=== PATIENT | male | born 1970 | race Caucasian/White ===

== ENCOUNTER → 2018-01-26 15:48 | Outpatient (CLI) | payer OTHER, SELFPAY ==
--- NOTE | 2018-01-26 15:50 | RAD_ITS ---
STUDY: X-RAY - ABDOMEN/PELVIS REASON FOR EXAM: Male, 47 years old. Kidney stone on the right TECHNIQUE: Two AP supine views of the abdomen and pelvis. COMPARISON: None. FINDINGS: There is a moderate amount of colonic fecal material. There is no demonstrated free abdominal air. The visualized liver, spleen and kidneys are grossly normal in size and morphology. Normal soft tissue structures. Normal visualized osseous structures. Calcific density in the region of the distal right ureter measuring 9.3 mm. Unsure if this represents distal ureteral nephrolith. RAD/Abdomen Single View IMPRESSION: As above. Electronically Signed: Dru Ricardo DO at 11:58 EDT Tel , Service support ,
== END ==
PROVIDERS: Family Provider Family Medicine; PCP Family Medicine; Visit Provider Nurse Practitioner Adult Health
DX: N20.1 Calculus of ureter (principal)
CPT/HCPCS: 74018

== ENCOUNTER → 2018-02-17 15:28 | Outpatient (CLI) | payer OTHER, SELFPAY ==
--- NOTE | 2018-02-17 15:40 | RAD_ITS ---
STUDY: X-RAY - ABDOMEN/PELVIS REASON FOR EXAM: Male, 47 years old. Right-sided kidney stone TECHNIQUE: 2 views COMPARISON: January 26, 2018 FINDINGS: There are no abnormal calcifications projecting over the kidneys, ureters or urinary bladder. A 1 cm calculus in the right pelvis seen in the last examination of January 26, 2018 is no more evident. The bones and joints are within normal limits. There is a mild degree of fecal stasis. No intestinal obstruction. RAD/Abdomen Single View IMPRESSION: Mild fecal stasis. Nothing acute in the abdomen. The 1 cm calculus presumably in the distal right ureter seen in the study of January 26, 2018 is no more evident Electronically Signed: Kyaw Velazquez MD at 5:26 EDT Tel , Service support ,
== END ==
PROVIDERS: Family Provider Family Medicine; PCP Family Medicine; Referring Provider Urology; Visit Provider Urology
DX: N20.0 Calculus of kidney (principal)
CPT/HCPCS: 74018

== ENCOUNTER → 2021-01-22 11:27 | Outpatient (CLI) | payer OTHER, SELFPAY ==
[2021-01-22 15:32] LABS: Cholesterol 157 mg/dL (200); High Density Lipoprotein 51 mg/dL; PSA,Total - Annual Screen 0.64 ng/mL (0.00-4.00); Triglycerides 79 mg/dL; Very Low Density Lipoprotein 16 mg/dL (5-40)
== END ==
PROVIDERS: PCP Family Medicine; Referring Provider Family Medicine; Visit Provider Family Medicine
DX: Z00.00 Encounter for general adult medical examination without abnormal findings (principal)
CPT/HCPCS: 36415; 80061; 84153; G0103

== ENCOUNTER → 2022-10-09 | Outpatient (CLI) | payer OTHER, SELFPAY ==
[2022-10-09 08:16] LABS: Cholesterol 190 mg/dL (200); High Density Lipoprotein 60 mg/dL; PSA,Total - Annual Screen 0.51 ng/mL (0.00-4.00); Triglycerides 97 mg/dL; Very Low Density Lipoprotein 19 mg/dL (5-40)
[2022-10-09 08:28] LABS: Hemoglobin A1c 5.1 % (3.8-5.6)
== END | disposition home or self-care (01) ==
LOC: LAB 07:08
PROVIDERS: PCP Family Medicine; Referring Provider Family Medicine; Visit Provider Family Medicine
DX: Z00.00 Encounter for general adult medical examination without abnormal findings (principal); Z12.5 Encounter for screening for malignant neoplasm of prostate
CPT/HCPCS: 36415; 80061; 83036; 84153; G0103

== ENCOUNTER → 2022-10-15 | Outpatient (CLI) | payer OTHER, SELFPAY ==
--- NOTE | 2022-10-15 11:44 | RAD_ITS ---
EXAM: XR RIGHT KNEE COMPLETE, 4 OR MORE VIEWS CLINICAL INDICATION: DERANGEMENT OF KNEE TECHNIQUE: Four or more views of the right knee. COMPARISON: No relevant prior studies available. FINDINGS: BONES/JOINTS: Unremarkable. No acute fracture. No subluxation. Normal alignment. Preservation of the joint space. No sclerotic or destructive changes observed. SOFT TISSUES: Unremarkable. No soft tissue swelling or gas. No radiopaque foreign body. RAD/Knee 4 or More Views IMPRESSION: Negative right knee x-rays. Electronically Signed: Ezequiel Reynaga MD at 22:51 EDT ,
[2022-10-15 15:36] LABS: AST(SGOT) 27 U/L (15-37); Alanine Aminotransfer ALT/SGPT 32 U/L (16-61); Albumin, Serum 3.8 g/dL (3.2-5.0); Alkaline Phosphatase 132 U/L (45-117); Bilirubin, Direct 0.13 mg/dL (0.00-0.30); Globulin 3.8 g/dL (2.2-4.2); Lipase 35 U/L (13-75); Protein, Total 7.6 g/dL (6.4-8.2)
== END | disposition home or self-care (01) ==
LOC: MTLAB 11:43
PROVIDERS: PCP Family Medicine; Referring Provider Family Medicine; Visit Provider Family Medicine
DX: M23.91 Unspecified internal derangement of right knee (principal); R10.11 Right upper quadrant pain
CPT/HCPCS: 36415; 73564; 80076; 83690

== ENCOUNTER 2022-10-18 21:24 | Observation (INO) | payer OTHER, SELFPAY ==
[2022-10-18 21:25] VITALS: BP 142/100; PULSE 59; RESP 16; TEMP 36.1; O2SAT 100
[2022-10-18 21:45] VITALS: BMI 26.5
[2022-10-18 22:07] LABS: Absolute Lymphocyte Count 1.63 X10^3/uL (0.83-4.51); Basophil# 0.05 X10^3/uL; Basophil% 0.7 % (0-1); Eosinophil# 0.47 X10^3/uL; Eosinophils% 6.8 % (0-5); Hematocrit 43.7 % (40-54); Hemoglobin 15.2 g/dL (13.0-16.5); Lymphocyte # 1.63 X10^3/ul (0.83-4.51); Lymphocyte % 23.6 % (19-41); Mean Corp Hgb Conc 34.8 g/dL (32-36); Mean Corpuscular Hgb 31.9 pg (27.0-32.0); Mean Corpuscular Volume 91.6 fL (80-94); Mean Platelet Vol. 9.4 fl (6.2-12.0); Monocyte# 0.71 X10^3/uL; Monocyte% 10.3 % (0-10); NRBC Flagged by Analyzer 0 % (0-5); Neutrophil # 4.04 X10^3/uL (2.7-7.7); Neutrophil % 58.3 % (47-70); Platelet Count 278 K/mm3 (150-450); RBC Distribution Width CV 12.7 % (11.6-14.6); RBC Distribution Width SD 42.5 fl (35.1-43.9); Red Blood Count 4.77 M/mm3 (4.6-6.2); White Blood Count 6.9 K/mm3 (4.4-11.0)
[2022-10-18] MEDS: 0.9% Normal Saline 1,000 ML 125 ML IV (22:11)
[2022-10-18] MEDS: Ondansetron 4 MG/2 ML Vial IV (22:12)
[2022-10-18] MEDS: Ketorolac 15 MG/ML Vial IV (22:13)
[2022-10-18] MEDS: Morphine 4 MG/ML Syringe IV ×2 (22:13→22:43)
[2022-10-18 22:20] LABS: AST(SGOT) 18 U/L (15-37); Alanine Aminotransfer ALT/SGPT 29 U/L (16-61); Albumin, Serum 3.5 g/dL (3.2-5.0); Alkaline Phosphatase 127 U/L (45-117); Bilirubin, Direct 0.11 mg/dL (0.00-0.30); Globulin 3.9 g/dL (2.2-4.2); Lipase 44 U/L (13-75); Protein, Total 7.4 g/dL (6.4-8.2)
--- NOTE | 2022-10-18 22:23 | ED.VIS.GI ---
HPI <Dr. Jaiden Ken MD - Last Filed: 10/22/22 08:24> HPI - GI History of Present Illness Chief Complaint: Abd Pain Detail of Chief Complaint: Right upper quadrant abdominal pain with nausea Informant: patient and spouse/S.O. Abdominal Pain/Flank Pain Onset: Today and Weeks (1 week ago was first episode) Context: Sudden Onset Timing: Continuous Quality: Cramping Location: RUQ Current Severity: Moderate Maximum Severity: Severe Worsened by: Food (Patient had ice cream at approximately 430. Patient had cheese 1 hour prior to presentation.) Relieved by: Nothing; Not Relieved By Antacids, Food or Remaining Still Nausea/Vomiting/Emesis GI Symptom: Positive for Nausea and Vomiting Onset: Today and Weeks Diarrhea/Melena/Hematochezia GI Symptom: Negative for Diarrhea, Melena or Hematochezia Associated Symptoms Associated Symptoms: Negative for Dysuria, Frequency, Hematuria or Urgency Narrative Narrative: Patient is a 52-year-old male who presents with right upper quadrant colicky pain rating through to his back with nausea vomiting. He has similar episode 1 week ago. He was seen by his PCP earlier this week and is scheduled for an outpatient ultrasound the end of October. He denies fever or chills. He denies dark-colored urine. has not noted yellow color to his eyes or yellow tinge to his skin. He denies headache, visual, ocular auditory symptoms. He denies cardiac or respiratory symptoms. He denies urologic symptoms. There is no history of trauma. He denies lesion. Prior similar symptoms: Yes Recent Illness/Hospitalization: Yes [facility] <Dr. Jaiden Ken MD - Last Filed: 10/22/22 08:24> [facility] Medical History (Updated 10/19/22 @ 09:38 by Renetta Muniz) Kidney stones Medical History no medical history no medical history Home Medications acetaminophen 325 mg tablet 650 mg PO Q4H PRN PRN P/F #0 tabs 10/21/22 [Rx Last Taken Unknown] oxycodone-acetaminophen 5 mg-325 mg tablet (Percocet) 1 tab PO Q4H PRN pain 5 days #20 tabs 10/21/22 [Rx Last Taken Unknown] Allergy/AdvReac Type Severity Reaction Status Date / Time No Known Allergies Allergy Verified 10/18/22 21:25 Surgical History History of appendectomy Social History (Updated 10/18/22 @ 22:[address] Jaiden Ken MD) household members: spouse Smoking Status: Never smoker alcohol intake: current alcohol intake frequency: holidays/special occasions only substance use type: does not use ROS <Dr. Jaiden Ken MD - Last Filed: 10/22/22 08:24> ROS ED Constitutional Constitutional ED: Denies chills, fever(s), subjective, sweats or weight loss ENT ENT ED: Denies ear pain, rhinorrhea or sore throat Cardiovascular Cardiovascular: Denies chest pain, palpitations or racing heartbeat Respiratory/Chest Respiratory/Chest: Denies cough, dyspnea or dyspnea on exertion Gastrointestinal Gastrointestinal: Reports abdominal pain, nausea and vomiting; Denies constipation, diarrhea or melena Genitourinary Genitourinary ED: Denies dysuria, hematuria or urinary frequency Musculoskeletal Musculoskeletal: Denies arthralgias, back pain, myalgias or neck pain Integumentary Denies rash Neurologic Neurologic: Denies headache(s), paresthesias or weakness Endocrine Endocrinology: Denies polydipsia or polyuria Hematologic/Lymphatic Hematologic/Lymphatic: Denies easy bleeding or easy bruising EXAM <Dr. Jaiden Ken MD - Last Filed: 10/22/22 08:24> Physical Exam Const Vital Signs: 10/18/22 21:25 10/18/22 23:28 10/19/22 01:00 Temperature 97.0 F L Temperature Source Temporal Pulse Rate 59 L 85 65 Respiratory Rate 16 16 16 Blood Pressure 142/100 H 113/68 110/57 L Blood Pressure Mean 114 83 74 Pulse Ox 100 99 99 Oxygen Delivery Method Room Air 10/19/22 03:00 10/19/22 05:00 10/19/22 07:29 Temperature Temperature Source Pulse Rate 55 L Respiratory Rate 16 14 Blood Pressure 119/63 Blood Pressure Mean 81 Pulse Ox 99 Oxygen Delivery Method Room Air Positive well nourished and well developed Constitutional Narrative: Patient is in obvious discomfort. Vital signs are surprisingly unremarkable General Appearance ED: well developed; Negative for pallor HEENT Reports TM's clear and moist mucous membranes normocephalic and atraumatic Tympanic Membrane ED: Yes TM's clear Eyes PERRL and EOMs intact bilaterally General Eye ED: Negative for pale conjunctiva or scleral icterus Neck no lymphadenopathy, supple and no JVD Chest Wall Chest Narrative: Normal in appearance. No pain to palpation. Resp normal respiratory effort and clear to auscultation bilaterally Cardio regular rate, regular rhythm, S1 normal heart sound, S2 normal heart sound and no murmurs GI non-distended and no masses; Negative for non-tender Auscultation: hypoactive bowel sounds Palpation: soft, tender RUQ and Bailon's sign and guarding RUQ; Negative for rigid, hepatomegaly, splenomegaly, mass or pulsatile mass Back/Spine no CVA tenderness Extremity full ROM General Extremety ED: Negative for edema or tenderness General Extremity: Negative for edema Neuro CN's II-XII intact bilaterally and moves all extremities Sensorium / Orientation: alert Psych mental status grossly normal and thought process normal Skin no wounds General Skin Exam: Negative for jaundice or pallor Lesions: no lesions <Dr. John Steiner DO - Last Filed: 10/19/22 08:28> Physical Exam Const Vital Signs: 10/18/22 21:25 10/18/22 23:28 10/19/22 01:00 Temperature 97.0 F L Temperature Source Temporal Pulse Rate 59 L 85 65 Respiratory Rate 16 16 16 Blood Pressure 142/100 H 113/68 110/57 L Blood Pressure Mean 114 83 74 Pulse Ox 100 99 99 Oxygen Delivery Method Room Air 10/19/22 03:00 10/19/22 05:00 10/19/22 07:29 Temperature Temperature Source Pulse Rate 55 L Respiratory Rate 16 14 Blood Pressure 119/63 Blood Pressure Mean 81 Pulse Ox 99 Oxygen Delivery Method Room Air [facility] <Dr. Jaiden Ken MD - Last Filed: 10/22/22 08:24> [facility] Narrative Medical decision making narrative: Family history cholelithiasis. History and physical exam is suggestive of cholecystitis. Also need to consider cholecystitis, choledocholithiasis pancreatic lesion. Doubt peptic ulcer disease, hiatal hernia or reflux. CBC, hepatic and lipase were ordered. He was treated with IV Zofran for his nausea and IV Toradol and morphine for his pain. History & Record Review Discussion w/independent historian: Patient and Significant other Lab Data Attestation: I reviewed the patient's lab results. Lab results narrative: Blood work reveals slight of his blood work is otherwise unremarkable. Labs: Laboratory Results - last 24 hr 10/18/22 10/18/22 21:45 21:45 WBC 6.9 RBC 4.77 Hgb 15.2 Hct 43.7 MCV 91.6 MCH 31.9 MCHC 34.8 RDW Std Deviation 42.5 RDW Coeff of Corbin 12.7 Plt Count 278 MPV 9.4 Immature Gran % (Auto) 0.300 Neut % (Auto) 58.3 Lymph % (Auto) 23.6 [place] % (Auto) 10.3 H Eos % (Auto) 6.8 H Baso % (Auto) 0.7 Absolute Neuts (auto) 4.0 Absolute Lymphs (auto) 1.63 Nucleated RBC % 0 Total Bilirubin 0.30 Direct Bilirubin 0.11 AST 18 ALT 29 Alkaline Phosphatase 127 H Total Protein 7.4 Albumin 3.5 Globulin 3.9 Lipase 44 Radiography Diagnostic Testing: Clinical Impression(s) from Imaging Studies Gallbladder Ultrasound 10/19/22 22:37 IMPRESSION: Cholelithiasis and probable acute cholecystitis. There is a hyperechoic lesion in the left lobe of the liver measures 1 cm in diameter may represent a hemangioma. Further evaluation by MRI would be helpful for definitive diagnosis. Electronically Signed: Suleiman De Anda MD at 8:16 EDT , Differential Diagnosis Chest pain/SOB: pulmonary embolism Reason(s) PE less likely: Positive for PERC negative, not tachycardic and not hypoxic and ACS ACS: Positive for history not suggestive of ischemia pain Abdominal Pain: Cholecystitis and Pancreatitis Reason(s) Pancreatitis less likely: clinical exam does not support, NL lab values and laboratory values not significantly altered from baseline Treatment and Re-Evaluation :: Patient was reassessed at 2235. He was informed of his laboratory results. He still appears uncomfortable. Additional dose of morphine was ordered. Ultrasound was ordered to be done first thing in the morning since he ate prior to coming in. The cytopathology technologist was made aware that he will need to be done first thing in the morning. Care was transferred to the evening physician Dr. Ley. <Dr. John Steiner, DO - Last Filed: 10/19/22 08:28> [facility]DM Narrative Medical decision making narrative: Family history cholelithiasis. History and physical exam is suggestive of cholecystitis. Also need to consider cholecystitis, choledocholithiasis pancreatic lesion. Doubt peptic ulcer disease, hiatal hernia or reflux. CBC, hepatic and lipase were ordered. He was treated with IV Zofran for his nausea and IV Toradol and morphine for his pain. Patient turned over to me this morning by Dr. Ley. Patient was seen originally by Dr. Ken with biliary colic type pain. Patient apparently had just eaten therefore they wanted to wait on obtaining an ultrasound. Patient had been here overnight and this morning had an ultrasound of the gallbladder that was read by radiology as thickened gallbladder wall of 17 mm with gallstones and sludge and positive Bailon sign concerning for acute cholecystitis. On repeat exam this morning patient still quite tender in the right upper quadrant with guarding and positive Bailon sign. Case discussed with general surgeon on-call Dr. Steven Bruner who will admit patient to hospital for cholecystectomy. Lab Data Labs: Laboratory Results - last 24 hr 10/18/22 10/18/22 21:45 21:45 WBC 6.9 RBC 4.77 Hgb 15.2 Hct 43.7 MCV 91.6 MCH 31.9 MCHC 34.8 RDW Std Deviation 42.5 RDW Coeff of Corbin 12.7 Plt Count 278 MPV 9.4 Immature Gran % (Auto) 0.300 Neut % (Auto) 58.3 Lymph % (Auto) 23.6 [place] % (Auto) 10.3 H Eos % (Auto) 6.8 H Baso % (Auto) 0.7 Absolute Neuts (auto) 4.0 Absolute Lymphs (auto) 1.63 Nucleated RBC % 0 Total Bilirubin 0.30 Direct Bilirubin 0.11 AST 18 ALT 29 Alkaline Phosphatase 127 H Total Protein 7.4 Albumin 3.5 Globulin 3.9 Lipase 44 Radiography Diagnostic Testing: Clinical Impression(s) from Imaging Studies Gallbladder Ultrasound 10/19/22 22:37 IMPRESSION: Cholelithiasis and probable acute cholecystitis. There is a hyperechoic lesion in the left lobe of the liver measures 1 cm in diameter may represent a hemangioma. Further evaluation by MRI would be helpful for definitive diagnosis. Electronically Signed: Suleiman De Anda MD at 8:16 EDT , Discharge Plan Dx/Rx/DC Orders Clinical Impression: Abdominal pain, Acute calculous cholecystitis Disposition Disposition: Acute Care [facility]
[2022-10-18 23:28] VITALS: BP 113/68; PULSE 85; RESP 16; O2SAT 99
[2022-10-19] VITALS (8 sets, daily range): BP systolic 101–129; BP diastolic 57–82; PULSE 54–71; RESP 14–18; TEMP 36.2–37.1; O2SAT 98–100; BMI 25.8
--- NOTE | 2022-10-19 08:34 | NURSING ---
MED SURG PAUL ABD PAIN, ACUTE CALCULUS CHOLECYSTITIS
[2022-10-19] MEDS: 0.9% Normal Saline 1,000 ML 125 ML IV (09:47)
--- NOTE | 2022-10-19 11:40 | CASEMGMT ---
RN CM Face to Face with patient for initial transition planning/care coordination assessment. RN CM introduced self and role at [facility]. Patient lying in bed, alert and oriented. Patient willing to participate in assessment and is able to answer all questions appropriately. Care providers, pharmacy, and demographics verified. Patient wishes to discharge home, denies need for home health at this time. Patient states he has no further needs or concerns at this time. CM to follow for discharge planning needs that may arise. PCP: Vikki Specialists: none Preferred Pharmacy: [facility] Insurance: MMO Prescription Benefit: yes Living Will/HPOA: yes, Iqra Quinonez LNOK: Living Arrangements: Patient lives with in single story home with 2 steps to enter the home. Patient is independent at home. Transportation: self, DME/HHC: Patient denies DME or previous HHC Disposition Plan: Patient to discharge home with family support and follow-up plans in place. Salma BLANCN, RN, CM
--- NOTE | 2022-10-19 13:30 | HP.PCM.SX_ITS ---
HPI - General General Date of Admission: 10/19/22 HPI Narrative SRIDEVI ESPINOSA, is a 52 M who presents with right upper quadrant pain. The patient experienced right upper quadrant pain after eating ice cream last week. He saw his PCP and she ordered an ultrasound which was not supposed to be done until next week. He says he has some dull aching over the week and Friday night he had some ice cream and they cause the same attack. He came to the emergency room and they waited till this morning and ordered an ultrasound which showed thickening of the gallbladder with cholelithiasis. Patient reports currently he is having no abdominal pain or nausea. He has not had any morphine in 14 hours. He denies any fevers or chills. He denies any nausea or vomiting at this point. He says he did dry heave yesterday. [facility] Medical History (Updated 10/19/22 @ 09:38 by Renetta Muniz) Kidney stones Medical History no medical history Home Medications NK 10/18/22 [History Last Taken Unknown] Allergy/AdvReac Type Severity Reaction Status Date / Time No Known Allergies Allergy Verified 10/18/22 21:25 Surgical History History of appendectomy Social History (Updated 10/18/22 @ 22:[address] Jaiden Ken MD) household members: spouse Smoking Status: Never smoker alcohol intake: current alcohol intake frequency: holidays/special occasions only substance use type: does not use ROS Constitutional Constitutional: Denies anorexia, chills or fatigue Eyes Eyes: Denies blurry vision ENT HEENT: Denies abnormal hearing Cardiovascular Cardiovascular: Denies chest pain Respiratory/Chest Respiratory/Chest: Denies cough or dyspnea Gastrointestinal Gastrointestinal: Reports abdominal pain and nausea; Denies constipation, diarrhea, dysphagia or vomiting Genitourinary Genitourinary: Denies change in urinary stream Musculoskeletal Musculoskeletal: Denies abnormal gait Integumentary Integumentary: Denies new lesions Psychiatric Psychiatric: Denies anxiety Endocrine Endocrinology: Denies flushing Hematologic/Lymphatic Hematologic/Lymphatic: Denies easy bleeding Vital Signs Vital Signs Vital Signs: 10/18/22 21:25 10/18/22 23:28 10/19/22 01:00 Temperature 97.0 F L Temperature Source Temporal Pulse Rate 59 L 85 65 Pulse Strength Respiratory Rate 16 16 16 Respiratory Effort Respiratory Depth Respiratory Pattern Blood Pressure 142/100 H 113/68 110/57 L Blood Pressure Mean 114 83 74 Blood Pressure Source Blood Pressure Position Blood Pressure Location Pulse Ox 100 99 99 Oxygen Delivery Method Room Air 10/19/22 03:00 10/19/22 05:00 10/19/22 07:29 Temperature Temperature Source Pulse Rate 55 L Pulse Strength Respiratory Rate 16 14 Respiratory Effort Respiratory Depth Respiratory Pattern Blood Pressure 119/63 Blood Pressure Mean 81 Blood Pressure Source Blood Pressure Position Blood Pressure Location Pulse Ox 99 Oxygen Delivery Method Room Air 10/19/22 08:40 10/19/22 09:50 10/19/22 09:53 Temperature 97.2 F L Temperature Source Temporal Pulse Rate 71 Pulse Strength Normal (2+) Respiratory Rate 18 Respiratory Effort Normal Respiratory Depth Normal Respiratory Pattern Normal Blood Pressure 118/71 Blood Pressure Mean 86 Blood Pressure Source Blood Pressure Position Blood Pressure Location Pulse Ox 100 Oxygen Delivery Method Room Air Room Air 10/19/22 09:55 Temperature 97.8 F Temperature Source Oral Pulse Rate 54 L Pulse Strength Respiratory Rate 16 Respiratory Effort Respiratory Depth Respiratory Pattern Blood Pressure 129/82 H Blood Pressure Mean 97 Blood Pressure Source Monitor Blood Pressure Position Semi-Fowlers Blood Pressure Location Right Arm Pulse Ox 100 Oxygen Delivery Method Room Air Weight Weight: 190 lb 4.8 oz Body Mass Index (BMI) 25.8 Physical Exam Const oriented x3 and no apparent distress Resp normal respiratory effort and clear to auscultation bilaterally GI soft to palpation Palpation: tender RUQ Results Lab / Micro Data Result Diagrams: 10/18/22 21:45 Labs: Laboratory Results - last 24 hr 10/18/22 21:45: WBC 6.9, RBC 4.77, Hgb 15.2, Hct 43.7, MCV 91.6, MCH 31.9, MCHC 34.8, RDW Std Deviation 42.5, RDW Coeff of Corbin 12.7, Plt Count 278, MPV 9.4, Immature Gran % (Auto) 0.300, Neut % (Auto) 58.3, Lymph % (Auto) 23.6, Daniels % (Auto) 10.3 H, Eos % (Auto) 6.8 H, Baso % (Auto) 0.7, Absolute Neuts (auto) 4.0, Absolute Lymphs (auto) 1.63, Nucleated RBC % 0 10/18/22 21:45: Total Bilirubin 0.30, Direct Bilirubin 0.11, AST 18, ALT 29, Alkaline Phosphatase 127 H, Total Protein 7.4, Albumin 3.5, Globulin 3.9, Lipase 44 Radiology Impression Gallbladder Ultrasound 10/19/22 22:37 IMPRESSION: Cholelithiasis and probable acute cholecystitis. There is a hyperechoic lesion in the left lobe of the liver measures 1 cm in diameter may represent a hemangioma. Further evaluation by MRI would be helpful for definitive diagnosis. Electronically Signed: Suleiman De Anda MD at 8:16 EDT Reading Location ID and State: [facility] / [place] Tel , Service support , Assessment & Plan Assessment/Plan (1) Acute calculous cholecystitis: PLAN: The patient has been having pain for over a week. His ultrasound shows a 17 mm gallbladder wall with cholelithiasis. His white count was normal with no left shift. He denies any fevers or chills. His vitals are all stable. Currently is not having any pain or nausea. I believe that he is having intermittent cholecystitis. It may be that he had cholecystitis all week and that is why his gallbladder wall is thickened. At this time I would like to wait until Friday to perform his surgery as I would like to have backup available. I believe with all the inflammation over the course of the entire week it may be a very difficult surgery. If he markedly increases his white count or develops fevers or chills I will take him sooner and take him over the weekend. I discussed laparoscopic cholecystectomy with him and his . I also discussed possibility of a partial cholecystectomy and possible need for ERCP. Patient will stay on antibiotics and clear liquids for the weekend and I will take him on Friday for surgery. Steven Bruner MD Pager: [facility] [address] [place] [address], [address] [place] [address] Office:
--- NOTE | 2022-10-19 22:37 | US_ITS ---
INDICATION: Right upper quadrant pain, -- To be performed first thing in the morning. Patie EXAMINATION: Ultrasound US Abdomen RUQ (limited) TECHNIQUE: Zhang scale and color doppler imaging was performed of the gallbladder. COMPARISON: None. FINDINGS: Multiple stones in the gallbladder. There is a large stone at the neck. The gallbladder wall is markedly thickened measuring 17 mm in thickness. The proximal common bile duct measures 6, which is within normal limits for the patient''s age. Sonographic Bailon''s Sign: Positive. There is a hyperechoic lesion in the left lobe of the liver measures 1 cm in diameter may represent a hemangioma. Further evaluation by MRI would be helpful for definitive diagnosis. US/Gallbladder IMPRESSION: Cholelithiasis and probable acute cholecystitis. There is a hyperechoic lesion in the left lobe of the liver measures 1 cm in diameter may represent a hemangioma. Further evaluation by MRI would be helpful for definitive diagnosis. Electronically Signed: Suleiman De Anda MD at 8:16 EDT ,
[2022-10-20 03:21] VITALS: BP 105/66; PULSE 78; RESP 20; TEMP 37.4; O2SAT 97
[2022-10-20 06:16] LABS: Absolute Lymphocyte Count 0.76 X10^3/uL (0.83-4.51); Basophil# 0.02 X10^3/uL; Basophil% 0.2 % (0-1); Eosinophil# 0.12 X10^3/uL; Hematocrit 43.4 % (40-54); Hemoglobin 14.8 g/dL (13.0-16.5); Lymphocyte # 0.76 X10^3/ul (0.83-4.51); Lymphocyte % 6.2 % (19-41); Mean Corp Hgb Conc 34.1 g/dL (32-36); Mean Corpuscular Hgb 31.2 pg (27.0-32.0); Mean Corpuscular Volume 91.6 fL (80-94); Mean Platelet Vol. 9.5 fl (6.2-12.0); Monocyte# 0.35 X10^3/uL; Monocyte% 2.9 % (0-10); NRBC Flagged by Analyzer 0 % (0-5); Neutrophil # 10.95 X10^3/uL (2.7-7.7); Neutrophil % 89.3 % (47-70); Platelet Count 219 K/mm3 (150-450); RBC Distribution Width CV 12.7 % (11.6-14.6); RBC Distribution Width SD 42.6 fl (35.1-43.9); Red Blood Count 4.74 M/mm3 (4.6-6.2); White Blood Count 12.3 K/mm3 (4.4-11.0)
[2022-10-20 06:43] LABS: AST(SGOT) 16 U/L (15-37); Alanine Aminotransfer ALT/SGPT 26 U/L (16-61); Albumin, Serum 3.3 g/dL (3.2-5.0); Alkaline Phosphatase 113 U/L (45-117); Anion Gap 5 (5-15); BUN 11 mg/dL (7-18); BUN/Creat Ratio 9.7 RATIO (10-20); Calcium,Total 8.2 mg/dL (8.5-10.1); Chloride 108 mmol/L (98-107); Creatinine, Serum 1.13 mg/dL (0.70-1.30); EST Glomerular Filtration Rate 72 mL/min (>60); Est Glom Filt Rate - Afr Amer 88 mL/min (>60); Estimated Creatinine Clearance 83.93 ml/min; Globulin 3.2 g/dL (2.2-4.2); Glucose 99 mg/dL (74-106); Potassium 3.9 mmol/L (3.5-5.1); Protein, Total 6.5 g/dL (6.4-8.2); Sodium Level 138 mmol/L (136-145)
--- NOTE | 2022-10-20 06:57 | PN.SURG_ITS ---
Subjective Subjective Patient reports he is doing well but he did have chills overnight. He had a low-grade fever. He does not report any pain or nausea or vomiting. He has been tolerating clear liquids. Objective Data Objective Data Vital Signs: Vital Signs Temp Pulse Resp BP Pulse Ox O2 Del Method 99.4 F H 78 20 H 105/66 97 Room Air 10/20/22 03:21 10/20/22 03:21 10/20/22 03:21 10/20/22 03:21 10/20/22 03:21 10/20/22 03:21 Oxygen Delivery Method Room Air Weight: 190 lb 4.8 oz Body Mass Index (BMI) 25.8 Intake & Output: Intake and Output for Last 24 Hours 10/18/22 10/19/22 10/20/22 23:59 23:59 23:59 Intake Total 2347.92 / 2347.92 50 / 50 Output Total 0 / 0 Balance 2347.92 / 2347.92 50 / 50 Lab / Micro Data Result Diagrams: 10/20/22 05:38 10/20/22 05:38 Labs: Laboratory Results - last 24 hr 10/20/22 05:38: WBC 12.3 H, RBC 4.74, Hgb 14.8, Hct 43.4, MCV 91.6, MCH 31.2, MCHC 34.1, RDW Std Deviation 42.6, RDW Coeff of Corbin 12.7, Plt Count 219, MPV 9.5, Immature Gran % (Auto) 0.400, Neut % (Auto) 89.3 H, Lymph % (Auto) 6.2 L, [place] % (Auto) 2.9, Eos % (Auto) 1.0, Baso % (Auto) 0.2, Absolute Neuts (auto) 11.0 H, Absolute Lymphs (auto) 0.76 L, Nucleated RBC % 0 10/20/22 05:38: Sodium 138, Potassium 3.9, Chloride 108 H, Carbon Dioxide 25.0, Anion Gap 5, BUN 11, Creatinine 1.13, Estim Creat Clear Calc 83.93, Est GFR (MDRD) Af Amer 88, Est GFR (MDRD) Non-Af 72, BUN/Creatinine Ratio 9.7 L, Glucose 99, Calcium 8.2 L, Total Bilirubin 0.90, AST 16, ALT 26, Alkaline Phosphatase 113, Total Protein 6.5, Albumin 3.3, Globulin 3.2, Albumin/Globulin Ratio 1.0 Radiography Diagnostic Testing: Radiology Impression Gallbladder Ultrasound 10/19/22 22:37 IMPRESSION: Cholelithiasis and probable acute cholecystitis. There is a hyperechoic lesion in the left lobe of the liver measures 1 cm in diameter may represent a hemangioma. Further evaluation by MRI would be helpful for definitive diagnosis. Electronically Signed: Suleiman De Anda MD at 8:16 EDT Reading Location ID and State: [facility] / [place] Tel , Service support , Physical Exam Const oriented x3 and no apparent distress Resp normal respiratory effort GI soft to palpation and non-tender Inspection: Negative for abdominal distention Extremity normal to inspection Assessment & Plan Assessment/Plan (1) Acute calculous cholecystitis: PLAN: Patient had some chills overnight with low-grade fever of 99.4. He is tolerating clear liquids and he has no abdominal pain to palpation. He denies any nausea or vomiting. Plan for laparoscopic cholecystectomy tomorrow. I would like to operate tomorrow instead of today's that I have more help because I believe the patient may need a partial cholecystectomy and his surgery may be very difficult. Steven Bruner MD Pager: [facility] [address] [place] [address], [address] [place] [address] Office:
[2022-10-20] MEDS: 0.9% Normal Saline 1,000 ML 60 ML IV (07:31)
[2022-10-20 07:35] VITALS: BP 110/58; PULSE 78; RESP 16; TEMP 36.9; O2SAT 95
[2022-10-20 07:37] VITALS: O2SAT 95
[2022-10-20 10:50] VITALS: BP 100/65; PULSE 60; RESP 16; TEMP 36.8; O2SAT 96
[2022-10-20 13:08] VITALS: BMI 25.8
[2022-10-20 16:32] VITALS: BP 106/65; PULSE 55; RESP 14; TEMP 36.8; O2SAT 100
[2022-10-20 22:00] VITALS: BP 99/66; PULSE 60; RESP 16; TEMP 36.6; O2SAT 97
--- NOTE | 2022-10-20 22:36 | EKG12_ITS ---
Test Reason : A.M. EKG Blood Pressure : / mmHG Vent. Rate : 059 BPM Atrial Rate : 059 BPM P-R Int : 198 ms QRS Dur : 090 ms QT Int : 424 ms P-R-T Axes : 052 070 066 degrees QTc Int : 419 ms Sinus bradycardia Otherwise normal ECG No previous ECGs available Confirmed by DOTTIE HOANG, ANTHONY ([id number]), film or videotape editor KATIE OSBORN ([id number]) on 10/23/2022 12:28:22 PM Referred By: PAUL Confirmed By:ANTHONY SINCLAIR MD
[2022-10-21] VITALS (11 sets, daily range): BP systolic 108–140; BP diastolic 61–84; PULSE 58–75; RESP 16–18; TEMP 36.4–36.9; O2SAT 97–99; BMI 25.8
[2022-10-21] MEDS: 0.9% Normal Saline 1,000 ML 60 ML IV (01:36)
--- NOTE | 2022-10-21 07:28 | PCM.PN.BLA ---
Progress Note Patient notes he had a good night with no chills. He is not having any abdominal pain currently. No nausea or vomiting overnight.Plan for laparoscopic cholecystectomy this afternoon. I once again explained that he may have to have a partial cholecystectomy due to the inflammation. If that is necessary he may need ERCP with stent placement tomorrow. I discussed laparoscopic cholecystectomy with cholangiogram in detail with the patient. I discussed the risks, benefits, and alternatives of the procedure. I discussed the risks including but not limited to bleeding, infection, injury to surrounding organs such as the liver, bile duct, bowels. I did discuss the possibility of having to convert to an open procedure as well as the possibility that if any injuries occurred this may necessitate further surgery at a tertiary care center Steven Bruner MD Pager: [facility] [address] [place] [address], [address] [place] [address] Office: .
[2022-10-21] MEDS: Lactated Ringers 1,000 ML 15 ML IV ×2 (10:39→12:31)
--- NOTE | 2022-10-21 11:45 | GALL_PTH ---
PATIENT: SRIDEVI ESPINOSA LOC: MS3 U#:[id number] AGE/SX: 52/M ROOM: MO313 RE10/19/[address]: Dr. Steven Bruner MD : 1970 BED: 1 DIS: 10/21/2022 SPEC #: [id number] RECD: 10/21/22 12:54 STATUS: ALF ORTEZ #: [id number] EVITA: 10/21/22 11:[address]: Steven Bruner DEPT: SURGICAL PATHOLOGY RECD BY: Bharathi Paez ENTERED: 10/21/22 13:29 SP TYPE: VELVET SCHULER DR: Dr. Chelly Florez MD Tissues: Gallbladder, NOS Procedures: Surgery Specimen Level III HEADER OPERATION: Laparoscopic cholecystectomy with IOC PRE-OP DIAGNOSIS: Cholelithiasis and acute cholecystitis TISSUE SUBMITTED: Gallbladder MICROSCOPIC DIAGNOSIS Gallbladder, cholecystectomy: Chronic cholecystitis and cholelithiasis. See comment. MARIAM:gonzález 10/22/2022 COMMENT Inflammatory cell infiltrate consists of lymphocytes and numerous eosinophils. MICROSCOPIC DESCRIPTION Slides are reviewed. GROSS DESCRIPTION Received is one container labeled with the patient's name and designated gallbladder. The specimen consists of a gallbladder measuring 10.0 cm in length and up to 4.0 cm in diameter. The external surface is pink-ortega, smooth and glistening for the most part. Focally it is granular, hemorrhagic and contains cautery artifact. The gallbladder contains thick, green-yellow mucoid bile and one ovoid, greenish-brown stone measuring 3.5 x 2.5 x 2.0 cm. The mucosa is bile-stained and without any mass lesions. The gallbladder wall measures up to 0.5 cm in thickness. Yacht Rigger sections from the gallbladder and the cystic duct are submitted in one cassette. / MARIAM:gonzález 10/21/2022 TC:3 CPT: 63114
--- NOTE | 2022-10-21 11:51 | RAD_ITS ---
CLINICAL HISTORY: Male, 52 years old. Status post cholecystectomy PROCEDURE: CHOLANGIOGRAM - intraoperative CONSENT: Informed consent obtained SEDATION: General FLUOROSCOPY TIME (if supplied): (8.2 seconds) , cine loop of 50 C-arm films obtained, radiation dose of 2.39mGy Placement of the catheter and the procedure were performed by: Dr. Bruner Fluoroscopy was provided by Pippa Woods, who was present in the room time of the procedure. TECHNIQUE: (All elements of maximal sterile barrier technique followed, including US elements as applicable) After completion of the cholecystectomy, the cystic duct remnant was cannulized by Dr. Bruner, and contrast injected into the biliary tree in a retrograde manner. There is normal filling of the biliary tree and flow of contrast into the duodenum. There is no evidence of extravasation of contrast suspected bile leak. RAD/Cholangiogram/ O R,Initial IMPRESSION: Normal intraoperative cholangiogram Electronically Signed: Sheldon Kebede MD at 13:33 EDT ,
[2022-10-21] MEDS: Bupivacaine 0.25% 30 ML Vial (12:24)
--- NOTE | 2022-10-21 14:13 | PCM.OPRPT ---
Report of Operation Date of Procedure: 10/21/22 Pre-Operative Diagnosis: Acute cholecystitis and cholelithiasis Post-Operative Diagnosis: Same Surgery/Procedure Performed:: Laparoscopic cholecystectomy with cholangiogram Specimen's removed: Gallbladder Description of Procedure: After obtaining informed consent patient was brought back to the operating room. General anesthesia was induced. The abdomen was prepped and draped in usual sterile fashion. A small midline incision was made superior to the umbilicus and deepened to the level of fascia. The fascia was elevated and incised. Next the peritoneum was elevated and incised in the same fashion. Finger sweep was performed and the Bearden trocar was placed into the abdomen. The balloon was inflated. The abdomen was inflated to 15 mmHg. Next a camera was introduced into the abdomen and the abdomen was inspected. Next under direct visualization three 5-mm ports were placed one subxiphoid and 2 subcostal. Next the gallbladder was elevated and retracted toward the right shoulder. The peritoneum was stripped from the gallbladder. The infundibulum was located and retracted laterally. Next the triangle of Calot was dissected and the cystic duct and cystic artery were identified. Cholangiograms were performed. The Pastrana clamp was used to clamp across the infundibulum and the catheter needle was inserted into the gallbladder. Under fluoroscopy contrast was instilled into the gallbladder and the common duct, cystic duct as well as proximal hepatic ducts were identified. There was good filling of the duodenum. There were no filling defects noted in the common bile duct. The clamp was removed as well as the needle and the infundibulum was grasped once more. Three hemolock clips were placed across the cystic duct. The cystic duct was then divided leaving 2 clips on the stump. The cystic artery was clipped and divided in the same fashion. The hook cautery was then used to take the gallbladder off of the gallbladder bed. Hemostasis was obtained. Gallbladder fossa was irrigated and no active bleeding or bile leakage was noted. Next the camera was introduced in the subxiphoid port. An Endopouch bag was placed through the umbilical port and the gallbladder was placed into it. The gallbladder was then removed through the umbilical incision. The camera was then reinserted through the umbilical port. The gallbladder fossa was inspected once more and noted to be hemostatic with no leaking bile. The abdomen was suctioned dry. The 5 mm ports were removed under direct visualization. The umbilical port was then removed and the air was removed from the abdomen. Next using an 0 Vicryl suture the umbilical fascia was closed in a [id number] fashion. The umbilical port site was irrigated local anesthetic was administered to all the incisions. All the incisions were closed with interrupted subcuticular 4-0 Monocryl sutures followed by Steri-Strips and dressings. The patient was awoken and taken to PACU in stable condition. Admit VTE Documentation VTE Mechan Device Prophylaxis: SCD's
--- NOTE | 2022-10-21 14:14 | PCM.DC.SUM ---
Providers Date of Admission: 10/19/22 Primary Care Physician: Dr. Chelly Florez MD Reason For Visit: CHOLECYSTITIS Diagnosis Discharge Diagnosis (1) Acute calculous cholecystitis: Status: Acute Code(s): K80.00 - Calculus of gallbladder with acute cholecystitis without obstruction Plan: Patient had some chills overnight with low-grade fever of 99.4. He is tolerating clear liquids and he has no abdominal pain to palpation. He denies any nausea or vomiting. Plan for laparoscopic cholecystectomy tomorrow. I would like to operate tomorrow instead of today's that I have more help because I believe the patient may need a partial cholecystectomy and his surgery may be very difficult. Steven Bruner MD Pager: [facility] [address] [place] [address], [address] [place] [address] Office: Medications at Discharge Home Medications acetaminophen 325 mg tablet 650 mg PO Q4H PRN PRN P/F #0 tabs 10/21/22 oxycodone-acetaminophen 5 mg-325 mg tablet (Percocet) 1 tab PO Q4H PRN pain 5 days #20 tabs 10/21/22 Hospital Course Operations cholecystecomy Procedures None Summary of Care Provided Hospital Course: Patient was admitted with acute cholecystitis of more than 5 days duration. He was admitted to the floor but kept on clear liquids and antibiotics until the week today as I anticipated a very difficult cholecystectomy. Cholecystectomy was performed on Friday and he tolerated the procedure well. He was advanced on diet. Once tolerating diet he was discharged home. Weight / BMI Weight Weight: 190 lb 4.8 oz Body Mass Index (BMI) 25.8 ABG / Lab / Microbiology Data Result Diagrams: 10/20/22 05:38 10/20/22 05:38 Radiography Diagnostic Testing: Radiology Impression Cholangiogram 10/21/22 11:51 IMPRESSION: Normal intraoperative cholangiogram Electronically Signed: Sheldon Kebede MD at 13:33 EDT , D/C Instructions Discharge Diet: Light diet - advance as tolerated Discharge Activity: May Drive (for 2-3 days or while taking narcotic pain medications.) and - (Do not drive, work heavy equipment or sign legal documents for 24 hours.) May shower in (days): 1 Lifting Restrictions: 20 lbs for 2 weeks Additional Activity Instructions: Pain medication may cause nausea. You should typically eat light foods as you take your pain medications. Pain medication may cause constipation. If this is a problem for you, please discuss with your doctor. Call your doctor if your incision/area has: Continuous Slow Oozing, Sudden Increased Bleeding, Increased Pain/ Swelling, Increased Redness and Foul Smelling Discharge Call your doctor if you observe: Fever of 101 or Higher Suture Line Care: Avoid Pulling/Pushing and Avoid Pinching/Bending Remove Dressing in: 2 days Additional Dressing/Incision Instructions: Leave operative bandaids on for 2 days. When you remove dressing, leave Steri-Strips on until your follow-up appointment, or until the Steri-Strips fall off on their own. Please Follow Up With: Steven Bruner MD When: Please call to schedule 2 week follow up appointment at [phone] Meaningful Use Info Meaningful Use Diagnoses (Choose all that apply): None applicable Discharge Plan Admission Admit Date/Time: 10/19/22 10:16 Attending Provider: Steven Bruner Primary Care Provider: Chelly Florez Discharge Orders/Prescriptions Prescriptions: New acetaminophen 325 mg Tablet 650 mg PO Q4H PRN PRN (Reason: P/F) Qty: 0 0RF oxycodone-acetaminophen [Percocet] 5-325 mg tablet 1 tab PO Q4H PRN (Reason: pain) 5 Days Qty: 20 0RF Rx Instructions: do not take along with tylenol Referrals / Follow Up: Chelly Florez MD [Primary Care Provider] - Disposition Disposition (needs filled in before D/C Order can be placed): Home, Self Care
--- NOTE | 2022-10-21 14:33 | CHAPLAIN ---
Type of Pastoral Visit _x__ Initial Visit ___ Follow-up Visit ___ On-call Visit ___ General Patient Visit ___ Spiritual Assessment ___ Family Conference ___ Bereavement ___ Rapid Response ___ Code Blue ___ Other (describe below) Pastoral Care Referral From ___ Patient _x__ Family ___ Nurse ___ Physician ___ Onboarding Specialist ___ Pattern Worker ___ Other (describe below) Sacrament/Intervention _x__ Active listening ___ Anointing ___ Confucianism ___ Bereavement ___ Communion ___ Vanesa exploration ___ ___ Life review ___ Prayer ___ Reconciliation ___ Sacrament of Sick _x__ Supportive presence ___ Wedding ___ Other (describe below) Pastoral Comments family member recognized this aboriginal community council member; conversation about health of patient and family was given; offer of support received;
== END 2022-10-21 18:48 | disposition home or self-care (01) | DRG 419 ==
LOC: ED 10-19 08:28 → MS3 10-19 11:18
PROVIDERS: Admitting Provider Surgery; Emergency Provider Emergency Medicine; PCP Family Medicine; Visit Provider Surgery
PROC: 0FT44ZZ Resection of Gallbladder, Percutaneous Endoscopic Approach (ICD-10-PCS; CPT 47610; principal; 2022-10-21 11:25)
DX: K80.00 Calculus of gallbladder with acute cholecystitis without obstruction (principal); R00.1 Bradycardia, unspecified
CPT/HCPCS: 47563; 00790; 36415; 74300; 76000; 76705; 80053; 80076; 83690; 85025; 88304; 93005; 96361; 96365; 96366; 96375; 96376; 99221; 99284; J7030; J7120; A4216; G0378; J2405

== ENCOUNTER → 2022-11-28 | Outpatient (CLI) | payer OTHER, SELFPAY ==
[2022-11-28 12:33] LABS: Absolute Lymphocyte Count 1.45 X10^3/uL (0.83-4.51); Absolute Neutrophil Count 3.8 X10^3/uL (2.0-7.7); Basophil# 0.05 X10^3/uL; Basophil% 0.7 % (0-1); Eosinophil# 1.02 X10^3/uL; Eosinophils% 14.9 % (0-5); Hematocrit 45.8 % (40-54); Hemoglobin 15.3 g/dL (13.0-16.5); Lymphocyte # 1.45 X10^3/ul (0.83-4.51); Lymphocyte % 21.2 % (19-41); Mean Corp Hgb Conc 33.4 g/dL (32-36); Mean Corpuscular Hgb 31.2 pg (27.0-32.0); Mean Corpuscular Volume 93.5 fL (80-94); Monocyte# 0.53 X10^3/uL; Monocyte% 7.7 % (0-10); NRBC Flagged by Analyzer 0 % (0-5); Neutrophil # 3.76 X10^3/uL (2.7-7.7); Neutrophil % 55.1 % (47-70); Platelet Count 227 K/mm3 (150-450); RBC Distribution Width CV 12.8 % (11.6-14.6); RBC Distribution Width SD 43.7 fl (35.1-43.9); White Blood Count 6.8 K/mm3 (4.4-11.0)
[2022-11-28 13:44] LABS: Anion Gap 5 (5-15); BUN 12 mg/dL (7-18); Calcium,Total 9.1 mg/dL (8.5-10.1); Chloride 104 mmol/L (98-107); EST Glomerular Filtration Rate 83 mL/min (>60); Est Glom Filt Rate - Afr Amer 101 mL/min (>60); Glucose 75 mg/dL (74-106); Potassium 4.1 mmol/L (3.5-5.1); Sodium Level 141 mmol/L (136-145)
== END | disposition home or self-care (01) ==
PROVIDERS: PCP Family Medicine; Referring Provider Orthopaedic Surgery; Visit Provider Orthopaedic Surgery
DX: Z01.818 Encounter for other preprocedural examination (principal); Z01.810 Encounter for preprocedural cardiovascular examination
CPT/HCPCS: 36415; 80048; 85025; 93005

== ENCOUNTER → 2023-09-22 | Outpatient (CLI) | payer OTHER, SELFPAY ==
--- NOTE | 2023-09-22 16:28 | US_ITS ---
INDICATION: severe testicular pain EXAMINATION: Ultrasound US Scrotum (Contents) TECHNIQUE: Realtime ultrasound of the testicles was performed with grayscale, Color Doppler and spectral Doppler analysis. COMPARISON: None. FINDINGS: RIGHT: TESTIS: 4.2 x 3.6 x 2.7 cm. Normal in size and echotexture, without focal lesion. COLOR DOPPLER: Normal arterial flow present in the testicle with monophasic waveforms. EPIDIDYMIS: Normal in size and echotexture, without focal lesion. [Normal color Doppler flow pattern in the epididymis. HYDROCELE: Small. VARICOCELE: None. LEFT: TESTIS: 3.8 x 2.8 x 2.1 cm. Normal in size and echotexture, without focal lesion. COLOR DOPPLER: Normal arterial flow present in the testicle with monophasic waveforms. EPIDIDYMIS: Normal in size and echotexture, 5 mm spermatocele. [Normal color Doppler flow pattern in the epididymis. HYDROCELE: Small. VARICOCELE: None. US/Testicular with Arterial Flow IMPRESSION: Normal testes bilaterally. Electronically Signed: Steve Seals MD at 18:35 EDT ,
== END | disposition home or self-care (01) ==
PROVIDERS: PCP Family Medicine; Referring Provider Family Medicine; Visit Provider Family Medicine
DX: N50.811 Right testicular pain (principal)
CPT/HCPCS: 76870; 93976